=== PATIENT | female | born 1985 | race African-American/Black ===

== ENCOUNTER 2020-05-08 11:09 | Emergency (ER) | payer OTHER ==
[2020-05-08 11:12] VITALS: TEMP 99.5; BMI 28.3
[2020-05-08] MEDS ORDERED: morphine CARPU-JECT 4 MG/1 ML DISP.SYRIN IVPUSH ONE (11:26)
[2020-05-08] MEDS ORDERED: SODIUM CHLORIDE 0.9% 1000 ML INFUS.BAG IV ONE (11:26)
[2020-05-08] MEDS ORDERED: ONDANSETRON 4 MG/2 ML VIAL ONE (11:32)
[2020-05-08] MEDS ORDERED: morphine SULFATE 4 MG/ML VIAL ONE (11:32)
[2020-05-08] MEDS ORDERED: ONDANSETRON 4 MG/2 ML VIAL IVPUSH ONE (11:43)
[2020-05-08 11:51] LABS: WHITE BLOOD COUNT 7.8 K/mm3 (4.0-10.8)
[2020-05-08 11:54] LABS: HEMATOCRIT 32.8 % (32.4-45.2); MCH 28.3 pg (25.7-33.7); MCHC 33.6 g/dl (32.0-36.0); MEAN CELL VOLUME 84.2 fl (80-96); MEAN PLT VOLUME 8.4 fl (7.5-11.1); PLATELET COUNT 252 K/MM3 (134-434); RDW 13.1 % (11.6-15.6)
[2020-05-08 12:00] LABS: ACTIVATED PTT 26.6 SECONDS (25.2-36.5)
[2020-05-08 12:04] LABS: INR 1.16 (0.82-1.09); PROTHROMBIN TIME (PATIENT) 12.9 SEC (10.2-13.0)
[2020-05-08 12:09] LABS: BILIRUBIN,TOTAL 0.9 mg/dl (0.2-1); CALCIUM 9.2 mg/dl (8.5-10); CREATININE 0.7 mg/dl (0.55-1.3); POTASSIUM 3.8 mmol/L (3.5-5.1); TOT PROT 6.8 g/dl (6.4-8.2)
[2020-05-08 12:59] VITALS: BP 112/85; PULSE 98
[2020-05-08 13:03] LABS: EPITHELIAL CELLS RARE /hpf
[2020-05-08 13:04] LABS: ANISOCYTOSIS 1+; PLATELET ESTIMATE ADEQUATE
== END 2020-05-08 13:15 | disposition short-term general hospital (02) ==
LOC: FER 11:09 → JER 11:09
PROC: 3E033NZ Introduction of Analgesics, Hypnotics, Sedatives into Peripheral Vein, Percutaneous Approach (ICD-10-PCS; principal; 2020-05-08)
PROC: 3E033GC Introduction of Other Therapeutic Substance into Peripheral Vein, Percutaneous Approach (ICD-10-PCS; 2020-05-08)
DX: N83.209 Unspecified ovarian cyst, unspecified side (principal); K66.1 Hemoperitoneum
CPT/HCPCS: 36415; 76604; 76705-TC; 76830-TC; 80053; 81003; 81015; 81025; 84702; 85025; 85610; 85730; 86850; 86900; 86901; 93308; 99285-25; U0003

== ENCOUNTER 2020-05-08 13:54 | Emergency (ER) | payer OTHER ==
[2020-05-08 14:40] VITALS: TEMP 99.7; BMI 29.2
[2020-05-08 14:54] LABS: BASO % 0.5 % (0-2.0); EOS % 0.1 % (0-4.5); HEMATOCRIT 32.2 % (32.4-45.2); HEMOGLOBIN 10.4 GM/dL (10.7-15.3); LYMPH % 14.9 % (8-40); MCH 28.3 pg (25.7-33.7); MCHC 32.4 g/dl (32.0-36.0); MEAN CELL VOLUME 87.2 fl (80-96); MEAN PLT VOLUME 8.3 fl (7.5-11.1); MONO % 3.3 % (3.8-10.2); NEUT % 81.2 % (42.8-82.8); PLATELET COUNT 217 K/MM3 (134-434); RBC 3.69 M/mm3 (3.60-5.2); RDW 13.7 % (11.6-15.6); WHITE BLOOD COUNT 8.3 K/mm3 (4.0-10.0)
[2020-05-08] MEDS ORDERED: ACETAMINOPHEN 325 MG TABLET (FP) ONE (16:07)
[2020-05-08] MEDS ORDERED: IBUPROFEN 400 MG TABLET (FP) PO ONE (16:08)
[2020-05-08] MEDS ORDERED: LACTATED RINGERS SOLUTION 1000 ML INFUS.BAG IV ONE (17:12)
[2020-05-08 17:20] LABS: URINE APPEARANCE CLEAR; URINE BILIRUBIN NEGATIVE (NEGATIVE); URINE COLOR YELLOW; URINE GLUCOSE (UA) NEGATIVE (NEGATIVE); URINE KETONE TRACE (NEGATIVE); URINE LEUK ESTERASE NEGATIVE (NEGATIVE); URINE NITRITE NEGATIVE (NEGATIVE); URINE PROTEIN NEGATIVE (NEGATIVE); URINE UROBILINOGEN 0.2 mg/dL (0.2-1.0)
[2020-05-08 17:28] LABS: BASO % 0.2 % (0-2.0); HEMATOCRIT 32.7 % (32.4-45.2); HEMOGLOBIN 10.8 GM/dL (10.7-15.3); LYMPH % 6.6 % (8-40); MCH 28.9 pg (25.7-33.7); MCHC 32.9 g/dl (32.0-36.0); MEAN CELL VOLUME 87.6 fl (80-96); MONO % 3.2 % (3.8-10.2); PLATELET COUNT 225 K/MM3 (134-434); RBC 3.73 M/mm3 (3.60-5.2); RDW 13.8 % (11.6-15.6); WHITE BLOOD COUNT 8.9 K/mm3 (4.0-10.0)
[2020-05-08 17:59] VITALS: BP 109/71; PULSE 99
== END 2020-05-08 19:03 | disposition home or self-care (01) ==
LOC: JER 13:54
PROC: 3E033NZ Introduction of Analgesics, Hypnotics, Sedatives into Peripheral Vein, Percutaneous Approach (ICD-10-PCS; principal; 2020-05-08)
PROC: 3E033GC Introduction of Other Therapeutic Substance into Peripheral Vein, Percutaneous Approach (ICD-10-PCS; 2020-05-08)
DX: N83.209 Unspecified ovarian cyst, unspecified side (principal)
CPT/HCPCS: 36415; 81003; 85025; 87086; 93005; 93010; 99284-25

== ENCOUNTER 2021-12-17 09:13 | Emergency (ER) | payer OTHER ==
[2021-12-17 09:28] VITALS: BP 112/63; PULSE 85; TEMP 99.3; BMI 31.8
[2021-12-17] MEDS ORDERED: ACETAMINOPHEN 325 MG TABLET (FP) PO ONE (09:58)
[2021-12-17] MEDS ORDERED: ACETAMINOPHEN 325 MG TABLET (FP) ONE (09:59)
== END 2021-12-17 10:03 | disposition home or self-care (01) ==
LOC: FER 09:13
DX: S09.90XA Unspecified injury of head, initial encounter (principal); W19.XXXA Unspecified fall, initial encounter; Y92.9 Unspecified place or not applicable
CPT/HCPCS: 99283-25